=== PATIENT | female | born 1995 | race Caucasian/White ===

== ENCOUNTER 2016-12-17 05:38 | Inpatient (IN) ==
[2016-12-17] MEDS ORDERED: FAMOTIDINE PB 20 MG/50 ML BAG IV ONE (06:06)
[2016-12-17] MEDS ORDERED: CEFAZOLIN PREMIX (MC ONLY) 2 GM/50 ML BAG IV ONE (06:06)
[2016-12-17] MEDS ORDERED: CITRIC ACID/SODIUM CITRATE 30ml PO ONE (06:06)
[2016-12-17 06:18] VITALS: BMI 28.9
[2016-12-17] MEDS: LR 1,000 ML IV SCH ×3 (06:42→08:32)
--- NOTE | 2016-12-17 06:58 | Anesthesia Preoperative Report ---
Anesthesia Epidural/Spinal Rec - Date and Time Date: 12/17/16 Preoperative Diagnosis: repeat Procedure: Plan: Spinal - Vital Signs Vital Signs: Temperature 97.8 F 12/17/16 06:18 Pulse Rate 88 12/17/16 06:18 Respiratory Rate 20 12/17/16 06:18 Blood Pressure 113/65 12/17/16 06:18 Pulse Oximetry 98 12/17/16 06:18 Oxygen Delivery Method Room Air /Para: P:1 - Medictaions & Allergies Inpatient Medications: Current Medications Lactated Ringer's (Lactated Ringers) 1,000 mls @ 150 mls/hr IV .[id number] VINEET Last Admin: 12/17/16 06:42 Dose: 150 mls/hr Allergies/Adverse Reactions: Allergies Allergy/AdvReac Type Severity Reaction Status Date / Time amoxicillin Allergy Intermediate Swelling Verified 12/06/16 12:50 of Lip/Tongue/Throat - Home Medications Home Medications: Home Medications Medication Instructions Recorded Confirmed Type Acetaminophen [Tylenol] 1 - 2 tab PO QID PRN #60 tab 06/20/16 12/16/16 History Ferrous Sulfate 325 mg PO DAILY 12/06/16 12/16/16 History Vit Calc,Iron,Folic 1 each PO DAILY 12/06/16 12/16/16 History [ Vitamins] - Medical History Respiratory: DENIES: Asthma, Bronchitis, Chronic Obstructive Pulmonary Disease (COPD), Dyspnea, Orthopnea, Pulmonary Embolism, Pneumonia, Upper Respiratory Infection, Pulmonary Edema, Sleep Apnea, Tuberculosis, Other Cardiovascular: DENIES: Abnormal EKG, Angina, Arrhythmia, Congestive Heart Failure, Coronary Artery Disease, Heart Murmur, Hypertension, Hypotension, High Cholesterol, Myocardial Infarction, Rheumatic Fever, Valvular Heart Disease, Other Gastrointestional: DENIES: Obstructive Bowel, Hepatitis, Cirrhosis, Nausea or Vomiting Present, Gastroesophageal Reflux Disease, Gastrointestinal Bleeding, Hiatal Hernia, Ulcer , Morbid Obesity, Other Neuro/Musculoskeletal: Denies: HX.MS.OSAR, Back Problems, Cerebrovascular Accident, Depression, Headaches, Loss of Consciousness, Muscle Weakness, Neuromuscular Disorder, Paralysis, Paresthesia, Syncope, Seizures, Other Renal/Endocrine: DENIES: Diabetes Mellitus Type 1, Diabetes Mellitus Type 2, Renal Failure, Dialysis, Thyroid Disease, Weight Loss, Weight Gain, Other Other History: Reports: Now - Surgical History Anesthesia Reactions: None Hx Family Anesthesia Reaction: No History of Motion Sickness: No - Social History Smoking Status: Never smoker Second Hand Exposure: No Substance Use Type: does not use Alcohol Intake: never Alcohol Intake Frequency: does not drink Hx Chewing Tobacco Use: No - Pertinent Findings Lab Data: CBC and BMP 12/17/16 06:29 - Physical Exam Respiratory Exam: lungs clear, bilateral breath sounds equal Cardiovascular Exam: regular rate and rhythm, no murmur - Airway Assessment Mallampati Score: I TMD: 3 Fingerbreadths Neck Extension: good Overall Assessment: no airway concerns - ASA ASA Score: 2 - Discussion Discussion: Discussed risks/options/alternatives of anesthesia and questions answered. Patient consents. Nursing pain assessment noted. Anesthesia Discussion: spouse Attestation Statement: Prior to the delivery of any anesthetic medication, I examined the patient, developed the plan, obtained the patient's consent and discussed the risk and benefits of the procedure with the patient/guardian.
[2016-12-17] MEDS ORDERED: ONDANSETRON 4 MG/2 ML INJECTION ONE (07:07)
[2016-12-17] MEDS ORDERED: EPHEDRINE 50mg/ml INJECTION ONE (07:07)
[2016-12-17] MEDS ORDERED: FentaNYL 100 MCG/2 ML INJECTION IVP ONE (07:30)
[2016-12-17] MEDS ORDERED: MORPHINE SULFATE PF 5mg/10ml INJ (Duramorph) EPI ONE (07:30)
[2016-12-17] MEDS ORDERED: ONDANSETRON 4 MG/2 ML INJECTION IVP ONE (07:30)
[2016-12-17] MEDS ORDERED: EPHEDRINE 50mg/ml INJECTION IM ONE (07:30)
[2016-12-17] MEDS ORDERED: OXYTOCIN DRIP 30 UNIT/500 ML ML IV SCH ×2 (08:00→08:51)
[2016-12-17] MEDS ORDERED: ONDANSETRON 4 MG/2 ML INJECTION IVP PRN (08:28)
[2016-12-17] MEDS ORDERED: NALOXONE 2 MG/2 ML INJECTION PFS IVP PRN (08:28)
[2016-12-17] MEDS ORDERED: NALBUPHINE 10 MG/ML INJECTION IVP PRN (08:28)
[2016-12-17] MEDS: D5LR 1,000 ML IV SCH (08:45)
[2016-12-17] MEDS ORDERED: DiphenhydrAMINE 25 MG CAPSULE PO PRN (08:51)
[2016-12-17] MEDS ORDERED: CALCIUM CARBONATE Chewable 500mg TABLET PO PRN (08:51)
[2016-12-17] MEDS ORDERED: SALINE FLUSH 10ml SYRINGE IVF PRN (08:51)
[2016-12-17] MEDS ORDERED: METOCLOPRAMIDE 10mg/2ml INJECTION IVP PRN (08:51)
[2016-12-17] MEDS ORDERED: ACETAMINOPHEN 500 MG TABLET PO PRN (08:51)
[2016-12-17] MEDS ORDERED: HYDROCORTISONE 2.5% CREAM 30gm RECTALLY PRN (08:51)
[2016-12-17] MEDS ORDERED: SIMETHICONE 80 MG CHEWABLE TABLET PO PRN (08:51)
[2016-12-17] MEDS: DOCUSATE CALCIUM 240 MG CAPSULE PO SCH (10:34)
[2016-12-17] MEDS: PRENATAL VITAMIN TABLET PO SCH (10:34)
[2016-12-17] MEDS: IBUPROFEN 800 MG TABLET PO PRN ×2 (10:34→22:31)
[2016-12-17] MEDS: SIMETHICONE 80 MG CHEWABLE TABLET PO SCH (10:35)
--- NOTE | 2016-12-17 14:53 | Anesthesia Postoperative Note ---
- Date and Time Date: 12/17/16 Time: 14:53 - Status Patient Participated in Evaluation: Patient Participated in Person Vital Signs: Temperature 97.6 F 12/17/16 14:32 Pulse Rate 68 12/17/16 14:32 Respiratory Rate 20 12/17/16 14:32 Blood Pressure 125/69 12/17/16 14:32 Pulse Oximetry 98 12/17/16 14:32 Oxygen Delivery Method Room Air Respiratory Function: Airway Patent, Regular Respirations Cardiovascular Function: Regular Pulse EKG Rhythm: Normal Sinus Rhythm Mental Status: Alert and Oriented Pain Intensity: 4 Hydration: Taking PO Fluids, IV Infusing Complications During Recover: None Apparent - Follow-Up Instructions Instructions: Per Surgeon
--- NOTE | 2016-12-17 20:21 | Progress Note ---
OB PP Progress Note Free Text - Date Date: 12/17/16 - Progress Note Progress Note: doing well baby still in scn hgb stable q&a
[2016-12-18] MEDS: SIMETHICONE 80 MG CHEWABLE TABLET PO SCH ×7 (00:34→22:51)
[2016-12-18] MEDS: D5LR 1,000 ML IV SCH ×2 (00:38→10:59)
[2016-12-18] MEDS: IBUPROFEN 800 MG TABLET PO PRN ×3 (07:15→22:50)
[2016-12-18] MEDS: HYDROCODONE/APAP 5mg/325mg TABLET PO PRN ×2 (07:16→22:50)
--- NOTE | 2016-12-18 09:28 | Progress Note ---
OB PP Progress Note Free Text - Date Date: 12/18/16 - Progress Note Progress Note: vss af doing ok baby in scn and mom at bedside currently q&a-krb
--- NOTE | 2016-12-18 09:43 | Operative Note ---
DATE OF SURGERY: 12/17/2016 PREOPERATIVE DIAGNOSIS 1. 21-year-old white female, G2, P1, at 37.3 weeks gestational age. 2. Worsening polyhydramnios. 3. Previous x 1. 4. Anemia. POSTOPERATIVE DIAGNOSIS 1. Nuchal cord x 1. 2. Male infant, Apgars, 3644 g (Sonia Bhatia). PROCEDURE: Repeat low transverse section. SURGEON: Fernando Burch MD NEWS ANCHOR: Sriram Andino, Pumping Plant Operator EBL: 800 ml ANESTHESIA: Spinal by Marquis Rice CRNA COMPLICATIONS: None. This is a patient of mine that we have been following several weeks for polyhydramnios and LGA. Her polyhydramnios is for worsening and now that she is term we went ahead and moved her up from 39 weeks till now. DESCRIPTION OF PROCEDURE After adequate spinal anesthesia, the patient was prepped and draped in the left lateral decubitus position. A Pfannenstiel skin incision was made with a sharp knife and carried down the fascia, which was incised transversely with the Davidson scissors. The rectus fascia was bluntly and sharply dissected off the rectus muscle. The rectus muscle was divided, and the peritoneum was isolated, elevated, entered with the Metzenbaum scissors and extended cephalad and caudad. The bladder blade was then inserted. The lower vesicouterine fold of the peritoneum was isolated and incised transversely. The bladder was bluntly dissected off the lower uterine segment. The bladder blade was reinserted. Then using a sharp knife, a transverse incision was made in the lower uterine segment. This was extended with my fingers. Male was delivered from the vertex position without difficulty. He was bulb suctioned after delivery of the head and then again after delivery of the body. Cord was doubly clamped and cut. There was a nuchal cord x 1 that was reduced. was received by Dr. Carlos of pediatrics. The placenta was expressed manually and was intact. The uterus was then allowed to fall upon the external abdominal wall. The endometrial cavity was cleansed using moist lap sponges. The uterus was closed using 0-Monocryl in a running locking fashion. Hemostasis was confirmed. The posterior cul-de-sac was cleansed of old blood clots and the tubes and ovaries were examined and found to be normal in size, shape and appearance. After hemostasis was again confirmed, the uterus was then carefully returned to the abdominal cavity. The abdomen was then closed in layers. The peritoneum was closed using 2-0 Vicryl in running nonlocking fashion. The fascia was closed using 0-Vicryl in a running nonlocking fashion bilaterally from the lateral aspects medially. Hemostasis was achieved with the subcutaneous tissue and then the skin was closed using 4-0 Vicryl in a subcuticular manner. The patient tolerated the procedure well and went to the recovery room in stable condition. Pad, sponge and needle counts were correct and urine postop was clear and free flowing. MTDD
[2016-12-18] MEDS: DOCUSATE CALCIUM 240 MG CAPSULE PO SCH (10:39)
[2016-12-18] MEDS: PRENATAL VITAMIN TABLET PO SCH (10:40)
[2016-12-19] MEDS: HYDROCODONE/APAP 5mg/325mg TABLET PO PRN (07:18)
[2016-12-19] MEDS: IBUPROFEN 800 MG TABLET PO PRN (08:11)
[2016-12-19] MEDS: DOCUSATE CALCIUM 240 MG CAPSULE PO SCH (08:11)
[2016-12-19] MEDS: PRENATAL VITAMIN TABLET PO SCH (08:11)
[2016-12-19 08:15] VITALS: BP 122/74; PULSE 77; RESP 18; TEMP 98.2; O2SAT 97
--- NOTE | 2016-12-19 09:57 | Discharge Instructions ---
Discharge Plan - Med Rec/Dispo Prescriptions: New Docusate Calcium [Surfak] 240 mg PO DAILY #30 capsule Hydrocodone/APAP 5/325 [[place] 5/325] 1 - 2 tab PO Q4H PRN #30 tablet PRN Reason: Pain Ibuprofen [Motrin] 800 mg PO Q8H PRN #40 tablet PRN Reason: Pain No Action Hydrocodone/Acetaminophen [Hydrocodon-Acetaminophen 5-325] 1 - 2 tab PO Q6H PRN #10 tab PRN Reason: PAIN Ferrous Sulfate 325 mg PO DAILY Acetaminophen [Tylenol] 1 - 2 tab PO QID PRN #60 tab PRN Reason: Pain Vit Calc,Iron,Folic [ Vitamins] 1 each PO DAILY Discharge Instructions/Outpatient Orders: Final Provider Discharge Instructions Location: Determined By Patient
== END 2016-12-19 10:45 | disposition home or self-care (01) | DRG 766 ==
LOC: MC 05:38
PROVIDERS: ADMIT Obstetrics & Gynecology; ATTEND Obstetrics & Gynecology